=== PATIENT | female | born 1950 | race Two or more races ===

== ENCOUNTER 2019-08-20 13:23 | Emergency (ER) | payer OTHER ==
[~2019-08-20] VITALS: Ht 165.1 cm; Wt 59.0 kg
--- NOTE | 2019-08-20 13:40 | NUR ---
bk 69 year old female, syncopal episode from work. alert and oriented x4 breathing even and unlabored noted. skin intact. noted +N/+V. waiting to be seen by
[2019-08-20] MEDS ORDERED: ONDANSETRON HCL/PF 4 MG/2 ML VIAL ONE ×2 (14:55→18:35)
[2019-08-20 15:30] LABS: BASOPHILS # (AUTO) 0.1 /CMM (0.0-0.2); BASOPHILS % (AUTO) 0.4 % (0.0-2.0); EOSINOPHILS % (AUTO) 0.3 % (0.0-6.0); HEMATOCRIT 40 % (33-45); HEMOGLOBIN 13.5 g/dL (11.5-14.8); LYMPHOCYTES # (AUTO) 1.4 /CMM (0.8-4.8); LYMPHOCYTES % (AUTO) 11.1 % (20.0-44.0); MEAN CORPUSCULAR HGB CONC 34 g/dl (31.0-36.0); MEAN CORPUSCULAR VOLUME 87 fL (82-100); MONOCYTES # (AUTO) 0.9 /CMM (0.1-1.30); MONOCYTES % (AUTO) 6.7 % (2.0-12.0); NEUTROPHILS # (AUTO) 10.7 /CMM (1.8-8.9); NEUTROPHILS % (AUTO) 81.5 % (43.0-81.0); PLATELET COUNT (AUTO) 299 /CMM (150-450); RED BLOOD CELL COUNT(AUTO) 4.59 MIL/uL (4.0-5.2); WHITE BLOOD COUNT (AUTO) 13.1 K/uL (4.3-11.0)
[2019-08-20] MEDS ORDERED: ONDANSETRON 4 MG TAB.RAPDIS PO ONE (15:30)
[2019-08-20] MEDS ORDERED: ONDANSETRON HCL/PF - ER 4 MG/2 ML VIAL IV ONE ×2 (15:30→19:00)
[2019-08-20 15:49] LABS: CALCIUM, SERUM 9.1 mg/dL (8.5-10.1); CARBON DIOXIDE 25 mmol/L (21-32); CHLORIDE 100 mmol/L (98-107); CREATININE 0.7 mg/dL (0.6-1.3); GLUCOSE 192 mg/dL (74-106); SODIUM SERUM 138 mmol/L (136-145); UREA NITROGEN, BLOOD 14 mg/dL (7-18)
[2019-08-20 15:50] LABS: POTASSIUM 2.7 mmol/L (3.5-5.1)
[2019-08-20 15:59] LABS: BILIRUBIN,DIRECT 0.1 mg/dL (0.0-0.2); BILIRUBIN,TOTAL 0.3 mg/dL (0.2-1.0)
[2019-08-20 16:00] LABS: ALANINE AMINOTRANSFERASE 18 U/L (12-78); ALBUMIN 4.2 g/dL (3.4-5.0); ALKALINE PHOSPHATASE 46 U/L (46-116); ASPARTATE AMINOTRANSFERASE 23 U/L (15-37); TOTAL PROTEIN, SERUM 7.8 g/dL (6.4-8.2)
--- NOTE | 2019-08-20 16:00 | NUR ---
CALLED NURSING SUP FOR TELE BED.
[2019-08-20] MEDS ORDERED: POTASSIUM CL. PREMIX PERIPHER. 50 ML ONE (16:27)
[2019-08-20] MEDS: POTASSIUM CL. PREMIX PERIPHER. 50 ML IV SCH ×3 (16:33→18:00)
[2019-08-20] MEDS ORDERED: Magnesium 1GM/D5W 100ML PREMIX 100 ML IV ONE ×2 (16:35→17:00)
--- NOTE | 2019-08-20 16:39 | NUR ---
CALLED [facility].
[2019-08-20] MEDS: Magnesium 1GM/D5W 100ML PREMIX 100 ML IV SCH ×2 (16:42→17:02)
--- NOTE | 2019-08-20 16:47 | NUR ---
ct scan results relayed to
[2019-08-20] MEDS ORDERED: POTASSIUM CL. PREMIX PERIPHER. 150 ML ONE (17:06)
--- NOTE | 2019-08-20 17:12 | NUR ---
NURSING SUP GAVE TELE BED 114-2.
--- NOTE | 2019-08-20 17:20 | NUR ---
[facility] CALLED. WANT TO GET CLINICALS AND INFORMATION ON PATIENT. FAX NUMBER [phone]. PHONE NUMBER TO CALL BACK [phone].
--- NOTE | 2019-08-20 17:47 | NUR ---
FAXED CLINICALS AND FACESHEET TO [facility].
--- NOTE | 2019-08-20 17:51 | NUR ---
PT WAS SOILED AND CLEANED UP
--- NOTE | 2019-08-20 17:51 | NUR ---
Phone number for report [phone] ext [phone], ETA 30 mins CCT.
--- NOTE | 2019-08-20 17:59 | NUR ---
pt remains stable asleep in no distress noted.
--- NOTE | 2019-08-20 18:17 | NUR ---
[facility] CALLED TO CALL BACK THE REPORT NUMBER IN 5-10 MINUTES TO GIVE REPORT.
--- NOTE | 2019-08-20 18:26 | NUR ---
REPORT GIVEN CAMMY AT [facility]
--- NOTE | 2019-08-20 18:38 | NUR ---
report given to vicki to continue akil
--- NOTE | 2019-08-20 18:39 | NUR ---
[facility] at bedside to transport pt to [facility]
[2019-08-20 18:40] VITALS: BP 122/66
== END 2019-08-20 18:43 | disposition short-term general hospital (02) ==
LOC: ER 13:23
DX: I60.9 Nontraumatic subarachnoid hemorrhage, unspecified (principal); E87.6 Hypokalemia; E83.42 Hypomagnesemia
CPT/HCPCS: 36415; 70450; 71045; 80048; 80076; 82962; 83735; 84484; 85025; 85730; 87081; 93005; 96365; 96366; 96368; 96375; 96376; 99291; A4216; J2405 ×2; J3475 ×2; J3480 ×2; J7060